=== PATIENT | female | born 1995 | race African-American/Black ===

== ENCOUNTER 2016-12-17 05:30 | Observation (INO) | payer OTHER, SELFPAY ==
[~2016-12-17] VITALS: Ht 167.6 cm; Wt 61.4 kg
[2016-12-17] VITALS (34 sets, daily range): BP systolic 94–125; BP diastolic 46–69
[2016-12-17] MEDS ORDERED: NALBUPHINE HCL 10 MG/ML AMP (J2300) IV ONE ×2 (06:15→07:30)
[2016-12-17] MEDS: AMPICILLIN SOD/SULBACTAM SOD 3 GM in D5W MINI-BAG PLUS 100 ML IV SCH ×3 (11:27→23:54)
[2016-12-17] MEDS ORDERED: PRENTAB9 PO (12:09)
[2016-12-17] MEDS ORDERED: ACETAMINOPHEN 500 MG TAB PO ONE (13:30)
[2016-12-17] MEDS ORDERED: miSOPROStol 200 MCG TAB (S0191) As Ordered ONE (15:24)
[2016-12-17] MEDS: miSOPROStol 200 MCG TAB (S0191) PV SCH ×2 (15:30→21:30)
[2016-12-17] MEDS ORDERED: MORPHINE 10 MG/ML 1ML VIAL As Ordered ONE (15:34)
[2016-12-17] MEDS: MORPHINE 2 MG/ML 1ML SYRINGE IV ONE ×2 (16:47→16:57)
[2016-12-17] MEDS ORDERED: MORPHINE 2 MG/ML 1ML SYRINGE IV ONE (19:30)
[2016-12-17] MEDS ORDERED: MORPHINE 4 MG/ML 1ML SYRINGE IV ONE ×2 (19:30)
[2016-12-17] MEDS ORDERED: PROMETHAZINE 25 MG TAB PO PRN (20:15)
[2016-12-17] MEDS ORDERED: METHYLERGONOVINE MALEATE 0.2 MG/ML VIAL (J2210) IM PRN (20:15)
[2016-12-17] MEDS ORDERED: MEASLES,MUMPS,RUBELLA VACCINE INJ (MMR-II) (90707) SC SCH (20:15)
[2016-12-17] MEDS ORDERED: DIBUCAINE 1% OINTMENT 30GM TOP PRN (20:15)
[2016-12-17] MEDS ORDERED: ACETAMINOPHEN 500 MG TAB PO PRN (20:15)
[2016-12-17] MEDS ORDERED: RHOGAM 300 MCG (1500 IU) INJ (J2790) IM SCH (20:15)
[2016-12-17] MEDS ORDERED: ONDANSETRON 4MG/2ML VIAL (J2405) IV PRN (20:15)
[2016-12-17] MEDS: DOCUSATE SODIUM 100 MG CAP PO SCH (21:43)
[2016-12-18] VITALS (9 sets, daily range): BP systolic 87–106; BP diastolic 41–55
[2016-12-18] MEDS: miSOPROStol 200 MCG TAB (S0191) PV SCH (03:30)
[2016-12-18] MEDS: AMPICILLIN SOD/SULBACTAM SOD 3 GM in D5W MINI-BAG PLUS 100 ML IV SCH ×4 (05:43→23:56)
[2016-12-18] MEDS: DOCUSATE SODIUM 100 MG CAP PO SCH ×2 (09:14→21:24)
[2016-12-18] MEDS: PRENATAL VITAMINS CHEWABLE TABLET PO SCH (09:14)
[2016-12-18] MEDS: IBUPROFEN 800 MG TAB PO PRN ×2 (11:45→21:25)
[2016-12-18] MEDS ORDERED: SLF 3 ML SYR IV PRN (13:00)
[2016-12-18] MEDS: SLF 3 ML SYR IV SCH ×2 (13:17→22:00)
[2016-12-19] VITALS: BP 98/55
[2016-12-19] MEDS: AMPICILLIN SOD/SULBACTAM SOD 3 GM in D5W MINI-BAG PLUS 100 ML IV SCH (05:43)
[2016-12-19] MEDS: SLF 3 ML SYR IV SCH (05:44)
[2016-12-19 08:00] VITALS: BP 100/53
[2016-12-19] MEDS ORDERED: ADVI200T PO (08:57)
[2016-12-19] MEDS ORDERED: TYLE500T78 PO (08:57)
[2016-12-19] MEDS ORDERED: COLA100C5 PO (08:57)
[2016-12-19] MEDS: PRENATAL VITAMINS CHEWABLE TABLET PO SCH (10:05)
[2016-12-19] MEDS: DOCUSATE SODIUM 100 MG CAP PO SCH (10:05)
[2016-12-24 10:13] LABS: GC Morphine 1267 ng/mL (Cutoff=200)
[2017-01-05 13:44] LABS: CHROMKA1 SEE SEPARATE REPORT
== END 2016-12-19 14:15 | disposition home or self-care (01) ==
LOC: M LDI 05:30 → INTOOBSV 05:30 → M PED 12-18 13:28
PROVIDERS: ADMIT Student in an Organized Health Care Education/Training Program; ATTEND Student in an Organized Health Care Education/Training Program
DX: O03.9 Complete or unspecified spontaneous abortion without complication (principal); O60.12X1 Preterm labor second trimester with preterm delivery second trimester, fetus 1; Z3A.17 17 weeks gestation of pregnancy
CPT/HCPCS: 80307; 87070; 87075; 87077; 87186; 88269; 88280; 88285; 88291; 88305; 88309; 96365; 96366; 96375; 96376; G0480; J2300

== ENCOUNTER 2017-01-14 10:05 | Day surgery (SDC) | payer OTHER ==
[~2017-01-14] VITALS: Ht 167.6 cm; Wt 60.5 kg
[~2017-01-14 10:05] MED LIST: ADVI200T PO; COLA100C5 PO; PRENTAB9 PO; TYLE500T78 PO
[2017-01-14] MEDS ORDERED: IBUPROFEN 600 MG TAB PO ONE (11:00)
[2017-01-14] MEDS ORDERED: ONDANSETRON 4 MG ORAL DISINTEGRATING TAB (S0181) PO ONE (11:00)
[2017-01-14 11:29] LABS: BASO # 0.1 10^3/uL (0.0-0.2); BASO % 0.6 % (0.0-1.0); EOS # 0.1 10^3/uL (0.0-0.50); EOS % 1.3 % (0.0-3.0); IMMATURE GRANULOCYTE % 0.3 % (0-0); LYMPH # 2.1 10^3/uL (1.5-6.5); LYMPH % 26.5 % (24.0-44.0); MEAN CORPUSCULAR HEMOGLOBIN 30.8 pg (27.0-33.0); MEAN CORPUSCULAR HGB CONC 34.1 g/dl (32.0-36.5); MEAN CORPUSCULAR VOLUME 90.3 fl (80.0-96.0); MONO # 0.7 10^3/uL (0.0-0.8); MONO % 8.5 % (0.0-5.0); NEUTROPHILS % 62.8 % (36.0-66.0); PLATELET COUNT, AUTOMATED 332 10^3/uL (150-450); RED CELL DISTRIBUTION WIDTH 12.6 % (11.5-14.5); WHITE BLOOD COUNT 7.9 10^3/uL (4.0-10.0)
[2017-01-14] MEDS ORDERED: ONDANSETRON 4MG/2ML VIAL (J2405) IV ONE (11:45)
[2017-01-14] MEDS ORDERED: MORPHINE 4 MG/ML 1ML SYRINGE IV ONE (11:45)
[2017-01-14 12:05] LABS: ANION GAP 8 MEQ/L (8-16); BLOOD UREA NITROGEN 7 MG/DL (7-18); CALCIUM LEVEL 8.6 MG/DL (8.5-10.1); CARBON DIOXIDE LEVEL 26 MEQ/L (21-32); CHLORIDE LEVEL 105 MEQ/L (98-107); GLOMERULAR FILTRATION RATE > 60.0 (>60); GLUCOSE, FASTING 74 MG/DL (70-105); HCG, SERUM QUANTITATIVE 3 MIU/ML; POTASSIUM SERUM 3.5 MEQ/L (3.5-5.1); SODIUM LEVEL 139 MEQ/L (136-145)
--- NOTE | 2017-01-14 12:51 | REP ---
Clinical: Status post with increased vaginal bleeding. Technique: Transabdominal pelvic ultrasound followed by transvaginal examination for better evaluation of the endometrium and adnexa with color Doppler evaluation of the ovaries. Findings: Heterogeneous anteverted uterus measures 9.2 x 4.6 x 5.2 cm. Endometrial complex is heterogeneous and distended measuring 14.1 mm thickness and demonstrates subtle vascularity suggesting retained products of conception. Moderate amount of complex free fluid is identified within the pelvis possibly hemorrhagic in nature. Bilateral maternal ovaries are normal and without torsion. Right ovary measures 5.6 x 2.5 x 2.7 cm with 2.1 cm hemorrhagic cyst; RI = 0.77. Left ovary measures 2.7 x 1.5 x 2.1 cm; RI = 0.55. Normal bladder measures 8.6 x 2.2 x 5.1 cm. Impression: 1. Heterogeneous thickened endometrium with subtle vascularity. Retained products of conception cannot be excluded. 2. Moderate amount of complex fluid in the pelvis possibly hemorrhagic. 3. Normal bilateral ovaries without torsion. Signed by Cory Kwan MD 01/14/2017 12:42 P
[2017-01-14] MEDS ORDERED: PIPERACILLIN/TAZOBACTAM SOD 3.375 GM in APPROPRIATE DILUENT 1 EA IV ONE (14:00)
[2017-01-14] MEDS ORDERED: NS 1,000 ML IV ONE (14:15)
[2017-01-14] MEDS ORDERED: MIDAZOLAM INJ 2 MG/2 ML VIAL (J2250) As Ordered ONE (14:18)
[2017-01-14] MEDS ORDERED: KETOROLAC 60 MG/2 ML VIAL (J1885) As Ordered ONE (14:18)
[2017-01-14] MEDS ORDERED: dexameTHASONE 4 MG/ML 1ML VIAL (J1100) As Ordered ONE ×2 (14:18→16:08)
[2017-01-14] MEDS ORDERED: ONDANSETRON 4MG/2ML VIAL (J2405) As Ordered ONE (14:18)
[2017-01-14] MEDS ORDERED: LIDOCAINE 2% INJ 100 MG/5 ML SDV (FOR ANES.) As Ordered ONE (14:18)
[2017-01-14] MEDS ORDERED: fentaNYL 100 MCG/2 ML INJECTION (J3010) As Ordered ONE (14:18)
[2017-01-14] MEDS ORDERED: PROPOFOL 200 MG/20 ML VIAL As Ordered ONE (14:18)
[2017-01-14] MEDS ORDERED: ZOSYN 3.375 GM VIAL (J2543) As Ordered ONE (14:23)
[2017-01-14] MEDS ORDERED: SEVOFLURANE INHAL SOLN 250 ML BTL As Ordered ONE (15:40)
[2017-01-14] MEDS ORDERED: OXYTOCIN INJ 10 UNITS/ML VIAL (J2590) As Ordered ONE (16:07)
[2017-01-14] MEDS ORDERED: ePHEDrine SULFATE 25 MG/5 ML(5MG/ML) SYRINGE As Ordered ONE (16:11)
[2017-01-14] MEDS ORDERED: METOCLOPRAMIDE INJ 10MG/2ML VIAL (J2765) IV PRN (17:15)
[2017-01-14] MEDS ORDERED: MEPERIDINE INJ 25 MG/ML VIAL (J2175) IV PRN (17:15)
[2017-01-14] MEDS ORDERED: KETOROLAC 30 MG/ML VIAL (J1885) IV PRN (17:15)
[2017-01-14] MEDS ORDERED: LR 1,000 ML IV SCH (17:15)
[2017-01-14] MEDS ORDERED: ONDANSETRON 4MG/2ML VIAL (J2405) IV PRN (17:15)
[2017-01-14] MEDS ORDERED: fentaNYL 100 MCG/2 ML INJECTION (J3010) IV PRN (17:15)
[2017-01-14 18:00] VITALS: BP 108/62
--- NOTE | 2017-01-17 11:50 | RO ---
DATE OF PROCEDURE: 01/14/2017 PREOPERATIVE DIAGNOSIS: Retained products of conception. POSTOPERATIVE DIAGNOSIS: Retained products of conception. OPERATION PROPOSED: Suction curettage. OPERATION PERFORMED: Suction curettage. SURGEON: Dr. Tommie Hardin MANAGER PLUMBING: ANESTHESIA: General ESTIMATED BLOOD LOSS: 100 mL. This is a lady who is 1 who delivered an unfortunately stillborn at 18 weeks of gestation with elements of chorio. She was adequately treated with antibiotic therapy, but came back bleeding significantly, passing clots, open os, and considerable pain from contractions. After discussing the risks and benefits of surgery, initially the patient decided to sign herself out against medical advice (AMA), and then she spoke with her . Her was present and we reviewed the options with him. They were planning on [place] out of the [place], which we felt was not a good idea without adequate treatment. He was generally upset about the entire situation; however, after explaining the risks and benefits, agreed to allow his to have suction curettage. PROCEDURE: Therefore, after adequate time-out and appropriate antibiotic therapy, sequentials on board, and empty bladder, in the lithotomy position, weighted speculum in vagina, single-tooth tenaculum on the anterior lip of the cervix, the os was already open to a Feli 10-11, there were multiple clots, old and fresh blood, and a curettage of the cavity revealed some debris and tissue. Immediately after removal, the uterus contracted well down on Pitocin. All instruments were removed. The uterus was placed in anatomical position, well contracted and the patient was sent to recovery in good condition.
== END 2017-01-14 18:04 | disposition home or self-care (01) ==
LOC: M ED 10:05 → M SDC 14:00
PROVIDERS: ATTEND Obstetrics & Gynecology
DX: O73.1 Retained portions of placenta and membranes, without hemorrhage (principal); Z91.013 Allergy to seafood; Z88.8 Allergy status to other drugs, medicaments and biological substances
CPT/HCPCS: 59812; 76830; 76856; 80048; 81001; 84702; 85025; 86850; 86900; 86901; 87086; 88305; 93976; 96374; 99284; J1100; J1885; J2250; J2405; J2543; J2590; J3010